=== PATIENT | male | born 2000 | race Caucasian/White ===

== ENCOUNTER 2020-11-11 11:48 | Emergency (ER) | payer OTHER ==
[~2020-11-11] VITALS: Ht 185.4 cm; Wt 145.1 kg
[2020-11-11 12:08] VITALS: BP_SYST 147
[2020-11-11] MEDS ORDERED: LIDOCAINE 1%, 20 ML MDV 20 ML ONE (12:38)
[2020-11-11] MEDS ORDERED: LIDOCAINE 1% 10 MG/ML, 20 ML MDV INJ ONE (12:45)
[2020-11-11] MEDS ORDERED: AMOX-423 PO (13:12)
[2020-11-11 13:49] VITALS: BP_SYST 147
== END 2020-11-11 13:46 | disposition home or self-care (01) ==
LOC: SED 11:48
DX: L05.01 Pilonidal cyst with abscess (principal)
CPT/HCPCS: 10080; 99283; J2001

== ENCOUNTER 2020-11-13 13:07 | Emergency (ER) | payer OTHER ==
[~2020-11-13] VITALS: Ht 185.4 cm; Wt 141.5 kg
[~2020-11-13 13:07] MED LIST: AMOX-423 PO
[2020-11-13 13:19] VITALS: BP_SYST 162
[2020-11-13 13:35] VITALS: BP_SYST 162
== END 2020-11-13 13:34 | disposition home or self-care (01) ==
LOC: SED 13:07
DX: L05.91 Pilonidal cyst without abscess (principal); Z48.00 Encounter for change or removal of nonsurgical wound dressing; Z79.899 Other long term (current) drug therapy
CPT/HCPCS: 99282